=== PATIENT | male | born 1960 | race Caucasian/White ===

== ENCOUNTER 2017-01-18 17:58 | Emergency (ER) | payer OTHER ==
[2017-01-18 18:55] VITALS: BP 148/93; PULSE 62; RESP 18; TEMP 98.2; O2SAT 95
--- NOTE | 2017-01-18 19:49 | UCPHY ---
H & P Time Seen by Provider: 01/18/17 19:36 Patient Type: New HPI/ROS: This patient presents with a chief complaint of sore throat which began 4 days ago. Swallowing is particularly painful. He has had some nasal congestion with postnasal drip and a right-sided earache but denies fever, cough, chest pain or shortness of breath. REVIEW OF SYSTEMS: Constitutional: Denies fever, denies malaise Eyes: No complaints ENT: Sore throat, nasal congestion, right ear pain, Respiratory: Minimal if any cough Cardiac: No chest pain Gastrointestinal: Not addressed Genitourinary: Not addressed Musculoskeletal: No myalgias Skin: No rash Neurological: No headache Smoking Status: Never smoked Physical Exam: GENERAL: Well-appearing, well-nourished and in no acute distress. HEAD: Atraumatic, normocephalic. EYES: , sclera anicteric, conjunctiva are normal. ENT: TMs normal, nares patent, oropharynx clear without exudates although there is some injection of the pharynx and soft palate. There are no ulcerations Moist mucous membranes. NECK: Normal range of motion, supple without lymphadenopathy or JVD. No tenderness. LUNGS: Breath sounds clear to auscultation bilaterally and equal. No wheezes rales or rhonchi. HEART: Regular rate and rhythm without murmurs, rubs or gallops. EXTREMITIES: Normal range of motion, no pitting or edema. No clubbing or cyanosis. NEUROLOGICAL: Cranial nerves II through XII grossly intact. Normal speech, normal gait. PSYCH: Normal mood, normal affect. SKIN: Warm, dry, normal turgor, no visible rashes or lesions. Constitutional: Initial Vital Signs Temperature (C) 36.8 C 01/18/17 18:03 Heart Rate 62 01/18/17 18:03 Respiratory Rate 18 01/18/17 18:03 Blood Pressure 148/93 H 01/18/17 18:03 O2 Sat (%) 95 01/18/17 18:03 O2 Delivery Mode Room Air Allergies/Adverse Reactions: No Allergies [NKDA] Allergy (Verified 01/18/17 18:02) Home Medications: Medication Instructions Recorded Clopidogrel Bisulfate [Plavix (*)] 75 mg PO DAILY 01/22/16 Etanercept [Enbrel] 50 mg SC Q7D 03/09/16 Herbals/Supplements -Info Only 1 ea PO DAILY 01/22/16 Metoprolol Succinate 50 mg PO DAILY@18 01/22/16 Potassium Citrate [Urocit-K 10meq 1,080 mg PO DAILY 01/22/16 (*)] Potassium Citrate [Urocit-K 10meq 3,240 mg PO HS 01/22/16 (*)] Unknown Simvastatin 1 tab PO DAILY 01/22/16 celeCOXIB [Celebrex (*)] 200 mg PO BID 01/22/16 Acetaminophen [Tylenol 325mg (*)] 650 mg PO QID PRN #0 tab 01/24/16 Aspirin [Aspirin 325 mg (*)] 325 mg PO HS #0 tab 01/24/16 Lisinopril [Zestril 10 mg (*)] 10 mg PO DAILY #30 tab 01/24/16 Nitroglycerin [Nitrostat 0.4 mg 0.4 mg SL PRN PRN #1 btl 01/24/16 (*)] Simvastatin [Zocor] 40 mg PO HS #30 tablet 01/24/16 Medical Decision Making Differential Diagnosis: I can find nothing that would suggest that this patient has a serious problem nor do I believe that his symptoms are related to a bacterial infection. Antibiotics were not prescribed. - Data Points Laboratory Results: 01/18/17 01/18/17 Unknown 18:05 Group A Strep Screen NEGATIVE (NEGATIVE) Group A Strep DNA Pending Departure - Departure Disposition: Home, Routine, Self-Care Clinical Impression: Pharyngitis Qualifiers: Pharyngitis/tonsillitis etiology: unspecified etiology Qualified Code(s): J02.9 - Acute pharyngitis, unspecified Condition: Good Instructions: Pharyngitis (ED) Additional Instructions: If your symptoms have not improved in 4 or 5 days you should be re-evaluated. Cause for concern would be fever, shortness of breath or worsening symptoms. Try a nasal decongestant spray such as Afrin. Referrals: Nakul Maciel MD [Primary Care Provider] - As per Instructions - PQRS PQRS Measurement: Not applicable
== END 2017-01-18 19:56 | disposition home or self-care (01) ==
LOC: CED 17:58
DX: J02.9 Acute pharyngitis, unspecified (principal); H92.01 Otalgia, right ear
CPT/HCPCS: 87880-PO; 99203-PO; G0463-PO